=== PATIENT | male | born 1985 | race Caucasian/White ===

== ENCOUNTER 2024-03-18 11:49 | Emergency (ER) | payer OTHER, SELFPAY ==
--- NOTE | ~2024-03-18 | XR_ITS ---
PA, oblique, and lateral views of the left third finger CLINICAL HISTORY: laceration FINDINGS: There is a fracture of the distal aspect of the third distal phalanx, without extension to the articular surface proximally. Fracture is nearly nondisplaced. No other fracture or dislocation s een. Joint spaces are intact. Soft tissues are unremarkable. IMPRESSION: Oblique, essentially nondisplaced fracture the distal aspect of the third distal findings. Reviewed, dictated and finalized at location M. IMPRESSION: Oblique, essentially nondisplaced fracture the distal aspect of the third dista l findings.
[2024-03-18 12:03] VITALS: BP 109/73; PULSE 85; RESP 16; TEMP 36; O2SAT 100
--- NOTE | 2024-03-18 12:04 | ED.WOUNDLAC ---
HPI - Wound/Laceration General Chief Complaint: Wound/Laceration Stated Complaint: WC left hand middle finger cut Time Seen by Provider: 03/18/24 12:15 Source: patient Mode of arrival: ambulatory Limitations: no limitations History of Present Illness HPI narrative: Silvio is a 39-year-old male patient presenting to the clinic today with complaints of a cut to the left middle finger. He reports he was at work and cut his finger on a lime trimmer. Has a vertical laceration to the distal 3rd finger with nail involvement. Bleeding is controlled. Tetanus is unknown. This occurred approximately 1 hour ago Related Data Home Medications Medication Instructions Recorded Confirmed cetirizine 10 mg tablet (Wal-Zyr 10 mg PO DAILY 03/18/24 03/18/24 (cetirizine)) Allergies Allergy/AdvReac Type Severity Reaction Status Date / Time sulfamethizole Allergy Severe Swelling Verified 03/18/24 12:26 of Lip/Tongue/Throat trimethoprim Allergy Severe Swelling Verified 03/18/24 12:26 of Lip/Tongue/Throat amoxicillin AdvReac Mild Rash Verified 03/18/24 12:26 Review of Systems Review of Systems: Pertinent positives per HPI. Patient denies any fever, chills, rash, headache, visual changes, dizziness, cough, runny nose, sore throat, shortness of breath, chest pain, palpitations, nausea, vomiting, diarrhea, constipation, abdominal pain, or any urinary issues. [facility] Family History Family History Grandparent Hypertension Other Family history of coronary artery disease Social History Social History Alcohol intake: current Comments At the time of my signature, I reviewed and agree with the nursing past medical, surgical, social, and family history. There is no relevant family history pertinent to the patient complaint. Exam Const: Other: General: Well-developed, well nourished, in no apparent distress Head: Normocephalic, atraumatic. Cardio: Regular rate and rhythm, s1 and s2 normal, no murmur appreciated. Resp: Clear to auscultation bilaterally, no rhonchi, rales, wheezing or rubs. Integumentary: [place], warm, and dry, 2 cm vertical laceration to the distal left 3rd phalanx with nail involvement. Bleeding controlled Course Course Emergency Course: Portions of this record may have been created with voice recognition software. Level of Care: Express Care Visit Vital Signs Vital signs: Vital Signs Temperature 36.0 C L 03/18/24 12:03 Pulse Rate 85 03/18/24 12:03 Respiratory Rate 16 03/18/24 12:03 Blood Pressure 109/73 03/18/24 12:03 Pulse Oximetry 100 03/18/24 12:03 Oxygen Delivery Room Air 03/18/24 12:03 Temperature 36.0 C L 03/18/24 12:03 Pulse Rate 85 03/18/24 12:03 Respiratory Rate 16 03/18/24 12:03 Blood Pressure 109/73 03/18/24 12:03 Pulse Oximetry 100 03/18/24 12:03 Oxygen Delivery Room Air 03/18/24 12:03 Vital signs reviewed Procedures Laceration Laceration 1: Date: 03/18/24 Site: hand (Left 3rd finger laceration) Side (If applicable): left Size (cm): 2 Description: linear (Vertical laceration), clean and contaminated Depth: simple, single layer Local Anesthetic: lidocaine 1% Amount of anesthesia used (mL): 6 (Digital block performed) Pre-repair: wound explored, irrigated and irrigated extensively ====== Skin Level ====== Skin layer closed with: nylon Size (cm): 4-0 Number of sutures: 5 Technique: simple, interrupted ====== Subcutaneous Layer ====== ====== Muscle Layer ====== ====== Tendon Layer ====== Dressing: Verbal consent obtained for laceration repair. Risk and benefits explained and patient voiced understanding. Area was cleansed with normal saline irrigation and Betadine and a 25 gauge needle w
[2024-03-18] MEDS: TETANUS,DIPHTHERIA,AC PERTUSSIS ADULT (0.5 ML) BOOSTRIX IM (12:20)
== END 2024-03-18 13:10 | disposition home or self-care (01) ==
PROVIDERS: Emergency Provider Nurse Practitioner Family; PCP Family Medicine
DX: S62.663B Nondisplaced fracture of distal phalanx of left middle finger, initial encounter for open fracture (principal); W29.3XXA Contact with powered garden and outdoor hand tools and machinery, initial encounter; Y99.0 Civilian activity done for income or pay; Z23 Encounter for immunization; Z86.19 Personal history of other infectious and parasitic diseases; Z86.16 Personal history of COVID-19
CPT/HCPCS: 12041; 29130; 73140; 90471; 90715; 99214; G0463